=== PATIENT | female | born 1955 | race Caucasian/White ===

== ENCOUNTER → 2020-02-24 | Outpatient (CLI) | payer MEDICARE, OTHER ==
--- NOTE | 2020-02-24 12:05 | RAD ---
Bone densitometry Clinical history: 64-year-old female, with history of smoking, for screening. Lumbar spine: L1 L4. Dual energy x-ray absorptiometry of the lumbar spine, reveals a bone mineral density of 1.035 gm/cm2. Today's measurement is also 88% of peak bone density usually attained by the third decade. It is 1.2 standard deviations below the expected young adult normal value (T-score = -1.2 ). At this bone density level, fracture risk is increased. Hip: Right. Dual energy x-ray absorptiometry of the right femoral neck reveals a bone mineral density of 0.657 gm/cm2. Today's measurement is also 63% of the peak bone density usually attained by the third decade. It is 2.7 standard deviations below the expected young adult normal value (T-score = -2.7 ). At this bone density level, fracture risk is increased. Impression: 1. Decreased bone mineral density of the lumbar spine and hip. Note: Definitions established by the World Health Organization: 1. Normal: T-score is -1.0 or above. 2. Osteopenia: T-score is between -1.0 and -2.5. 3. Osteoporosis: T-score is -2.5 or below. Electronically signed by: Bill Farnsworth MD (02/24/2020 12:02 PM) [id number]
--- NOTE | 2020-03-01 17:21 | RAD ---
DATE: 02/24/2020 11:05 AM EXAM: DIGITAL SCREEN BILAT W/CAD HISTORY: Screening COMPARISON: 11/07/2018 Bilateral CC and MLO views of the breasts were performed. Bilateral breast tomosynthesis was performed in CC and MLO projections. This study was interpreted with the benefit of Computerized Aided Detection (CAD). FINDINGS: Breast Density: SCATTERED The breast parenchyma shows scattered fibroglandular densities. Breast parenchyma level B No suspicious masses, microcalcifications or architectural distortion is present to suggest malignancy in either breast. The visualized axillae are unremarkable. IMPRESSION: No mammographic evidence of malignancy. BI-RADS CATEGORY: 1 NEGATIVE RECOMMENDED FOLLOW-UP: 12M 12 MONTH FOLLOW-UP Annual screening mammography is recommended, unless clinically indicated sooner based on symptoms or change in physical exam. PQRS compliance statement: Patient information was entered into a reminder system with a target due date for the next mammogram. Mammography is a sensitive method for finding small breast cancers, but it does not detect them all and is not a substitute for careful clinical examination. A negative mammogram does not negate a clinically suspicious finding and should not result in delay in biopsying a clinically suspicious abnormality. "Our facility is accredited by the [employer] Mammography Program."
== END | disposition home or self-care (01) ==
LOC: DXRAD 10:57
PROVIDERS: ATTEND Specialist
DX: Z12.31 Encounter for screening mammogram for malignant neoplasm of breast (principal); M85.89 Other specified disorders of bone density and structure, multiple sites
CPT/HCPCS: 77067; 77080

== ENCOUNTER → 2021-03-13 | Outpatient (CLI) | payer MEDICARE, OTHER ==
--- NOTE | 2021-03-13 14:51 | RAD ---
INDICATION: 65 years of age asymptomatic female patient presents for screening mammography. TECHNIQUE: Full field craniocaudal and mediolateral oblique images of both breasts were obtained usi ng digital technique with tomosynthesis and also analyzed with computer-aided detection software. COMPARISON: Prior mammographic imaging dating back to 02/24/2020, 11/01/2017, 11/07/2018, 10/29/2016 BREAST COMPOSITION: Category B: There are scattered fibroglandular densities. FINDINGS: Benign calcifications are present. No suspicious masses, microcalcifications or architectural distortion is present to suggest malignanc y in either breast. The visualized axillae are unremarkable. IMPRESSION: No mammographic evidence of malignancy. RECOMMENDATION: Annual screening mammography is recommended, unless clinically indicated sooner based on symptoms or change in physical exam. BIRADS 2: BENIGN This study was interpreted with the benefit of Computerized Aided Detection (CAD). Patient information is entered into the reminder system with a target due date for the next screening mammogram. Mammography is the most sensitive method for finding small breast cancers, but it does not detect the m all and is not a substitute for careful clinical examination. A negative mammogram does not negate a clinically suspicious finding and should not result in delay in biopsying a clinically suspicious a bnormality. "Our facility is accredited by the [employer] Mammography Program." Electronically signed by: Karlo Alcala MD (03/13/2021 2:49 PM) [email or web address]
== END ==
LOC: MAMMO 07:42
PROVIDERS: ATTEND Specialist
DX: Z12.31 Encounter for screening mammogram for malignant neoplasm of breast (principal)
CPT/HCPCS: 77063; 77067

== ENCOUNTER → 2021-05-23 | Outpatient (CLI) | payer MEDICARE, OTHER ==
--- NOTE | 2021-05-23 11:38 | RAD ---
EXAM: CT CHEST WITHOUT CONTRAST (LDCT LUNG CANCER SCREENING). HISTORY: Risk factors for pulmonary malignancy. Cigarette smoking. TECHNIQUE: CT of the chest was performed without intravenous contrast using a low-dose lung screening protocol. Findings analysis is based on ACR Lung-RADS v1.1. *One or more of the following individual ized dose reduction techniques were utilized for this examination: 1. Automated exposure control. 2. Adjustment of the mA and/or kV according to patient size. 3. Use of iterative reconstruction technique. COMPARISON: None. FINDINGS: The heart is normal in size. The aorta is normal in caliber. There is no lymphadenopathy. T here is no infiltrate, pleural effusion or pneumothorax. There is a 5 mm pleural-based nodule within the posterior right lung apex, likely due to adjacent pleural parenchymal scarring. There is a 2 mm n odule within the anterior right upper lobe (series 2, image 31). There is a 2 mm nodule along the rig ht minor fissure (series 2, image 51). There is a 2 mm groundglass nodule within the left upper lobe (series 2, image 22). There is a small fat-containing posterior left diaphragmatic hernia. There is n o acute finding involving the visualized upper abdomen. There is no acute or suspicious osseous findi ng. IMPRESSION: 1. Small pulmonary nodules measuring up to 5 mm. Lung RADS category 2: Low dose lung cancer screening CT in 12 months is recommended. 2. No acute thoracic finding. Electronically signed by: Evelyn Cochran MD (05/23/2021 11:36 AM) [id number]
== END ==
LOC: CT 10:35
PROVIDERS: ATTEND Specialist
DX: Z12.2 Encounter for screening for malignant neoplasm of respiratory organs (principal); R91.8 Other nonspecific abnormal finding of lung field; K44.9 Diaphragmatic hernia without obstruction or gangrene; Z87.891 Personal history of nicotine dependence
CPT/HCPCS: 71271